=== PATIENT | male | born 1940 | race Caucasian/White ===

== ENCOUNTER 2024-05-01 21:13 | Emergency (ER) | payer MEDICARE, SELFPAY ==
[2024-05-01 21:17] VITALS: BP 158/52; PULSE 72; RESP 17; TEMP 36.3; O2SAT 98
--- NOTE | 2024-05-01 22:17 | ED.FALL ---
HPI - Fall General Chief Complaint: Fall Stated Complaint: fall Time Seen by Provider: 05/01/24 21:46 Source: patient and family Mode of arrival: ambulatory Limitations: no limitations and dementia History of Present Illness HPI Narrative: Patient is an 84-year-old male, with past medical history of dementia, who presents the ED with report of a fall. Patient's family member at bedside assisted in providing information. Reports patient slipped and fell down the stairs. Landed on his right side. Sustained skin tears to his right upper arm, right lateral lower leg. Patient is on Eliquis due to history of CVA. Difficulty controlling bleeding at home which prompted their presentation. Patient denies any pain. He denies any head injury or LOC. Denies dizziness, lightheadedness, prodromal symptoms prior to the fall. Tetanus unknown. patient is reportedly visiting from [place]. Related Data Allergies Allergy/AdvReac Type Severity Reaction Status Date / Time No Known Allergies Allergy Verified 05/01/24 22:22 Review of Systems Review of Systems: CONSTITUTIONAL: Denies fever, chills, or sweats. SKIN: see HPI MUSCULOSKELETAL: Denies back pain, extremity pain, myalgia. NEUROLOGIC: Denies headache, dizziness, numbness, or weakness. All systems reviewed & are unremarkable except as noted in HPI and below Exam Narrative: GENERAL: Elderly, somewhat frail, non-toxic, in no acute distress. HEAD: Normocephalic, atraumatic. RESPIRATORY: Airway patent, respirations nonlabored. CARDIOVASCULAR: Regular rate and rhythm MUSCULOSKELETAL: Moves all extremities. No gross deformities. Full ROM of RUE/RLE, sensation intact. no tenderness throughout right arm, right elbow joint, right knee. SKIN: Warm, dry, normal color. Large skin tear to R lateral upper arm with small areas of minimal bleeding/oozing. A few small scattered skin tears to R lower lateral calf. No active bleeding. NEURO: A&O X3. Speech clear. Cranial nerves II-XII grossly intact. Steady gait. No ataxic movements. PSYCHIATRIC: Appropriate mood and affect. Normal interaction. Course Vital Signs Vital signs: Vital Signs Temperature 97.4 F L 05/01/24 21:17 Pulse Rate 72 05/01/24 21:17 Respiratory Rate 17 05/01/24 21:17 Blood Pressure 158/52 H 05/01/24 21:17 Pulse Oximetry 98 05/01/24 21:17 Oxygen Delivery Room Air 05/01/24 21:17 Temperature 97.4 F L 05/01/24 21:17 Pulse Rate 72 05/01/24 21:17 Respiratory Rate 17 05/01/24 21:17 Blood Pressure 158/52 H 05/01/24 21:17 Pulse Oximetry 98 05/01/24 21:17 Oxygen Delivery Room Air 05/01/24 21:17 MDM - Fall MDM Narrative Medical decision making narrative: Patient presented to ED with glf, mechanical, skin tears to R arm/R leg, on eliquis. Denies any HI/LOC/prodromal sx's. VSS. Neurologically intact. Tetanus updated in the ED. Skin tears were cleaned and bandaged. A small amount of surgicel was applied to skin tear on upper arm to control bleeding. Patient denies any pain on exam to suggest need for further imaging at this time. No bony tenderness. He is adamant that he did not hit his head. No scalp contusions or evidence of head trauma. He is at his neurologic baseline per family. Discussed wound care instructions, follow-up with PCP, strict return precautions. Patient and family in agreement with plan. Discharged in stable condition. Medical Records Attestation: I reviewed the patient's medical records. Discharge Plan Discharge Clinical Impression: Skin tear of right upper extremity, Fall from ground level Tear of skin of multiple sites of right lower extremity Qualifiers: Encounter type: initial encounter Qualified Code(s): S81.811A - Laceration without foreign body, right lower leg, initial encounter Patient Disposition: Home, Self-Care Condition: Stable Instructions: Antibiotic Form, Skin Tear (ED), Fall Prevention (ED) Additional Instructions:
[2024-05-01] MEDS: TETANUS,DIPHTHERIA,AC PERTUSSIS ADULT (0.5 ML) BOOSTRIX IM (22:23)
[2024-05-01] MEDS: CELLULOSE OXIDIZED 2 x 14 INCH 1 PKT XX (22:23)
[2024-05-01] MEDS: Please add drug allergy info to patient profile. 1 EACH XX (22:23)
== END 2024-05-01 22:51 | disposition home or self-care (01) ==
PROVIDERS: Emergency Provider Physician Assistant
DX: S41.111A Laceration without foreign body of right upper arm, initial encounter (principal); S81.811A Laceration without foreign body, right lower leg, initial encounter; Z23 Encounter for immunization; F03.90 Unspecified dementia, unspecified severity, without behavioral disturbance, psychotic disturbance, mood disturbance, and anxiety; Z86.73 Personal history of transient ischemic attack (TIA), and cerebral infarction without residual deficits; Z79.01 Long term (current) use of anticoagulants; W10.9XXA Fall (on) (from) unspecified stairs and steps, initial encounter
CPT/HCPCS: 90471; 90715; 99282